=== PATIENT | female | born 1990 | race Caucasian/White ===

== ENCOUNTER 2017-10-12 05:15 | Emergency (ER) | payer MEDICAID ==
[2017-10-12] MEDS ORDERED: CEFTRIAXONE 250 MG INJ IM (07:00)
[2017-10-12] MEDS ORDERED: AZITHROMYCIN 250 MG TAB PO (07:00)
== END 2017-10-12 07:55 | disposition left against medical advice (07) ==
LOC: FTE 05:15
DX: R10.2 Pelvic and perineal pain (principal); F17.210 Nicotine dependence, cigarettes, uncomplicated
CPT/HCPCS: 99283; J0696